=== PATIENT | male | born 1995 | race Two or more races ===

== ENCOUNTER 2022-08-17 17:58 | Emergency (ER) | payer OTHER ==
[~2022-08-17] VITALS: Ht 182.9 cm; Wt 90.7 kg
--- NOTE | 2022-08-17 19:15 | NUR ---
PT TAKEN TO CT
--- NOTE | 2022-08-17 19:21 | NUR ---
PT RETURNED FROM CT IN STABLE CONDITION.
[2022-08-17] MEDS ORDERED: CYCL5TAB PO (20:22)
[2022-08-17 21:42] VITALS: BP 124/76
== END 2022-08-17 21:43 | disposition home or self-care (01) ==
LOC: ER 18:00
DX: S13.4XXA Sprain of ligaments of cervical spine, initial encounter (principal); S16.1XXA Strain of muscle, fascia and tendon at neck level, initial encounter; J45.909 Unspecified asthma, uncomplicated; F32.A Depression, unspecified; Z79.899 Other long term (current) drug therapy; V89.2XXA Person injured in unspecified motor-vehicle accident, traffic, initial encounter; Y93.89 Activity, other specified; Y92.89 Other specified places as the place of occurrence of the external cause; Y99.8 Other external cause status
CPT/HCPCS: 70450-TC; 72125-TC